=== PATIENT | female | born 1995 | race Caucasian/White ===

== ENCOUNTER 2020-05-21 20:42 | Emergency (ER) | payer BC ==
[~2020-05-21] VITALS: Ht 167.6 cm; Wt 55.9 kg
[2020-05-21 21:33] LABS: BACTERIA,URINE 0 /HPF (0-FEW); BILIRUBIN,URINE NEG (NEG); CLARITY,URINE CLEAR; COLOR,URINE COLORLESS; GLUCOSE,URINE NEG (NEG); NITRITE,URINE NEG (NEG); RBC,URINE 0 /HPF (0-2); UROBILINOGEN,URINE 0.2 mg/dL (0.2 mg/dL); WBC,URINE 0 /HPF (0-4)
[2020-05-21] MEDS ORDERED: IOHEXOL 300 MG/ML 75 ML VIAL. IV ONE (21:45)
[2020-05-21] MEDS ORDERED: CONTRAST GIVEN. MC PRN (21:45)
--- NOTE | 2020-05-21 21:49 | PHYS DOC ---
Past History Past Medical History: No Pertinent History Alcohol Use: Rarely Adult General Chief Complaint Chief Complaint: ABDOMINAL PAIN HPI HPI Patient is a 24-year-old female who presents with right lower quadrant pain. She states that she woke up this morning and noticed that she was having pain in her right lower quadrant, 6 out of 10, sharp in nature with some radiation towards her back. States she never had anything like this before. Denies any recent travel, traumas, fevers, chest pain, shortness of breath, other abdominal pain, dysuria, hematuria, diarrhea. Denies any Covid/flu symptoms. Denies any vaginal bleeding, discharge or pain. Denies any history of STIs. States she otherwise feels well and has been eating and drinking normally today. States she is making urine and stool normally for her with no blood in either. States that currently the pain is only a 2 or 3 and can be exacerbated by moving around. States that eating does not change the pain at all. Review of Systems Review of Systems Review of systems otherwise unremarkable except noted in HPI Current Medications Current Medications Current Medications Medications (Trade) Dose Ordered Sig/Nilda Start Time Stop Time Status Last Admin Dose Admin Iohexol (Omnipaque 300 Mg/ml) 75 ml 1X ONCE 05/21/20 21:30 05/21/20 21:31 UNV Allergies Allergies Allergies Coded Allergies Type Severity Reaction Last Updated Verified No Known Drug Allergies 05/21/20 No Physical Exam Physical Exam Constitutional: Well developed, well nourished, no acute distress, non-toxic elke earance. [] HENT: Normocephalic, atraumatic, bilateral external ears normal, oropharynx moist, no oral exudates, nose normal. [] Eyes: conjunctiva normal, no discharge. [] Neck: Normal range of motion, no tenderness, supple, no stridor. [] Cardiovascular:Heart rate regular rhythm, no murmur [] Lungs & Thorax: Bilateral breath sounds clear to auscultation [] Abdomen: soft, right lower quadrant tenderness, no masses, no pulsatile masses. [] Skin: Warm, dry, no erythema, no rash. [] Back: No tenderness, no CVA tenderness. [] Extremities: No tenderness, no cyanosis, no clubbing, ROM intact, no edema. [] Neurologic: Alert and oriented X 3, normal motor function, normal sensory function, no focal deficits noted. [] Psychologic: Affect normal, judgement normal, mood normal. [] Current Patient Data Vital Signs Vital Signs Date Time Temp Pulse Resp B/P (MAP) Pulse Ox O2 Delivery O2 Flow Rate FiO2 05/21/20 20:50 99.3 91 20 134/90 (105) 98 Room Air Lab Results Laboratory Tests Test 05/21/20 20:55 05/21/20 21:12 Urine Collection Type Unknown Urine Color Colorless Urine Clarity Clear Urine pH 7.0 Urine Specific Morven 1.015 Urine Protein Neg (NEG-TRACE) Urine Glucose (UA) Neg mg/dL (NEG) Urine Ketones (Stick) Neg mg/dL (NEG) Urine Blood Trace (NEG) Urine Nitrite Neg (NEG) Urine Bilirubin Neg (NEG) Urine Urobilinogen Dipstick 0.2 mg/dL (0.2 mg/dL) Urine Leukocyte Esterase Neg (NEG) Urine RBC 0 /HPF (0-2) Urine WBC 0 /HPF (0-4) Urine Squamous Epithelial Cells None /LPF Urine Bacteria 0 /HPF (0-FEW) POC Urine HCG, Qualitative hcg negative (Negative) EKG EKG [] Radiology/Procedures Radiology/Procedures []Exam: CT of abdomen and pelvis with contrast INDICATION: Right lower quadrant pain TECHNIQUE: Sequential axial images through the abdomen and pelvis obtained following the administration of 75 mL of Omni 300 IV contrast. Sagittal and coronal reformatted images were reconstructed from the axial data and reviewed. Comparisons: None FINDINGS: Heart size is normal. No pericardial effusion. Visualized lung bases are clear. No pleural effusion. Liver, spleen, pancreas, gallbladder and adrenals are unremarkable. No perinephric inflammation or hydronephrosis. No renal or ureteral calculi are identified. Bladder is decompressed not well evaluated. Uterus is nonenlarged. Cystic lesions at the right adnexa largest measuring 1 cm. Large bowel demonstrate a large amount stool. Appendix is normal. Small bowel is unremarkable. No free intra-abdominal air or fluid. No obstruction. Abdominal abdominal aorta has a normal course and caliber. Abdominal vasculature is patent. No enlarged intra-abdominal lymph nodes are identified. No suspicious osseous lesions or acute fractures. IMPRESSION: 1. Normal appendix. 2. Small cystic lesions at the right adnexa likely representing follicular change in the right ovary measuring up to 1 cm. This is not definitively characterized on CT. Exposure: One or more of the following in the visualized dose reduction techniques were utilized for this examination: 1. Automated exposure control 2. Adjustment of the MA and/or KV according to patient size 3. Use of iterative of reconstructive technique Electronically signed by: Keith Galindo MD (05/21/2020 10:12 PM) [facility] Heart Score C/O Chest Pain: No Risk Factors: Risk Factors: DM, Current or recent (<one month) smoker, HTN, HLP, family history of CAD, obesity. Risk Scores: Risk Factors: DM, Current or recent (<one month) smoker, HTN, HLP, family history of CAD, obesity. Course & Med Decision Making Course & Med Decision Making Patient is a 24-year-old female who presents with right lower quadrant pain for day Vital signs not concerning. Physical exam noted above. Patient denies need for nausea or pain medicine at this time. Laboratory analysis not concerning. Urinalysis not concerning. Urine negative. CT notable for small cystic lesions at the right adnexa likely representing follicular change in the right ovary about 1 cm. Discussed all findings with family and recommended follow-up with RESERVATIONS CLERK to discuss this and possibly an outpatient ultrasound. Advised on pain control at home. Advised to follow-up with RESERVATIONS CLERK or primary care physician first thing tomorrow. Gave strict return precautions to the ED. Family grateful, verbalized understanding and agreed with plan of discharge. [] Dragon Disclaimer Dragon Disclaimer This electronic medical record was generated, in whole or in part, using a voice recognition dictation system. Departure Departure: Impression: Primary Impression: Ovarian cyst Disposition: 01 DC HOME SELF CARE/HOMELESS Condition: GOOD Referrals: PCP,NO (PCP) Patient Instructions: Ovarian Cyst Additional Instructions: Please read the attached information. Please follow-up with your primary care physician or RESERVATIONS CLERK this week to discuss your recent ED visit and results and need for outpatient ultrasound. Use Tylenol, and ibuprofen at home as needed for pain control. Please come back to the emergency department with any new or concerning symptoms. BENI ORTIZ MD May 21, 2020 21:49
[2020-05-21 21:50] LABS: BASO % 0 % (0-3); EOS # 0.1 x10^3/uL (0.0-0.7); EOS % 2 % (0-3); HEMOGLOBIN 13.6 g/dL (12.0-15.5); LYMPH % 36 % (24-48); MEAN CORPUSCULAR HEMOGLOBIN 29 pg (25-35); MEAN CORPUSCULAR HGB CONC 33 g/dL (31-37); MEAN CORPUSCULAR VOLUME 87 fL (79-100); MONO # 0.5 x10^3/uL (0.0-1.1); MONO % 8 % (0-9); NEUT % 54 % (31-73); PLATELET COUNT 175 x10^3/uL (140-400); RED BLOOD COUNT 4.72 x10^6/uL (3.50-5.40); RED CELL DISTRIBUTION WIDTH 13.5 % (11.5-14.5); WHITE BLOOD COUNT 5.5 x10^3/uL (4.0-11.0)
[2020-05-21 21:57] LABS: CALCIUM 8.7 mg/dL (8.5-10.1); CREATININE 0.8 mg/dL (0.6-1.0); GFR 89.7; POTASSIUM 3.5 mmol/L (3.5-5.1)
[2020-05-21 22:03] LABS: ALBUMIN 3.5 g/dL (3.4-5.0); TOTAL BILIRUBIN 0.3 mg/dL (0.2-1.0); TOTAL PROTEIN 7.1 g/dL (6.4-8.2)
--- NOTE | 2020-05-21 22:15 | RAD ---
Exam: CT of abdomen and pelvis with contrast INDICATION: Right lower quadrant pain TECHNIQUE: Sequential axial images through the abdomen and pelvis obtained following the administrati on of 75 mL of Omni 300 IV contrast. Sagittal and coronal reformatted images were reconstructed from the axial data and reviewed. Comparisons: None FINDINGS: Heart size is normal. No pericardial effusion. Visualized lung bases are clear. No pleural effusion. Liver, spleen, pancreas, gallbladder and adrenals are unremarkable. No perinephric inflammation or hydronephrosis. No renal or ureteral calculi are identified. Bladder is decompressed not well evaluated. Uterus is nonenlarged. Cystic lesions at the right adnexa largest measuring 1 cm. Large bowel demonstrate a large amount stool. Appendix is normal. Small bowel is unremarkable. No raisa e intra-abdominal air or fluid. No obstruction. Abdominal abdominal aorta has a normal course and caliber. Abdominal vasculature is patent. No enlarged intra-abdominal lymph nodes are identified. No suspicious osseous lesions or acute fractures. IMPRESSION: 1. Normal appendix. 2. Small cystic lesions at the right adnexa likely representing follicular change in the right ovary measuring up to 1 cm. This is not definitively characterized on CT. Exposure: One or more of the following in the visualized dose reduction techniques were utilized for this examination: 1. Automated exposure control 2. Adjustment of the MA and/or KV according to patient size 3. Use of iterative of reconstructive technique Electronically signed by: Keith Galindo MD (05/21/2020 10:12 PM) [facility]
[2020-05-21 23:00] VITALS: BP 125/81
== END 2020-05-21 23:11 | disposition home or self-care (01) ==
LOC: ER 20:42
DX: N83.201 Unspecified ovarian cyst, right side (principal)
CPT/HCPCS: 36415; 74177; 80053; 81001; 81025; 83690; 85025; 99285; Q9967

== ENCOUNTER 2021-04-18 13:18 | Emergency (ER) | payer BC, OTHER ==
[~2021-04-18] VITALS: Ht 167.6 cm; Wt 55.9 kg
--- NOTE | 2021-04-18 14:11 | PHYS DOC ---
Past History Past Medical History: No Pertinent History (SYDNIE SLADE) Past Surgical History: No Surgical History (SYDNIE SLADE) Alcohol Use: Rarely (SYDNIE SLADE) General Adult EDM: Chief Complaint: LACERATION/AVULSION HPI: HPI: Patient is a 25 year old female who presents with scalp laceration. Patient was helping her boyfriend move a shelf in the garage. She was crouched down when a shovel fell off the shelf and struck the top of her head. Patient reports associated headache. Patient denies loss of consciousness, neck pain, irritability nausea and vomiting. (SYDNIE SLADE) Review of Systems: Review of Systems: Constitutional: Denies fever, chills or generalized weakness Eyes: Denies change in visual acuity, visual field deficits or discharge HENT: Denies ear pain, nasal congestion or sore throat Respiratory: Denies cough or shortness of breath Cardiovascular: Denies chest pain, palpitations or edema GI: Denies abdominal pain, nausea, vomiting, bloody stools or diarrhea : Denies dysuria or hematuria Musculoskeletal: Denies back pain or joint pain Integument: Denies rash or other skin lesion Neurologic: Denies focal weakness or sensory changes. Reports headache. (SYDNIE SLADE) Current Medications: Current Meds: Current Medications Medications (Trade) Dose Ordered Sig/Nilda Start Time Stop Time Status Last Admin Dose Admin Ibuprofen (Motrin) 600 mg 1X ONCE 04/18/21 14:00 04/18/21 14:01 Lidocaine/ Epinephrine (Let ([id number]) Gel) 3 ml 1X ONCE 04/18/21 14:00 04/18/21 14:01 (SYDNIE SLADE) Allergies: Allergies: Allergies Coded Allergies Type Severity Reaction Last Updated Verified No Known Drug Allergies 05/21/20 No (SYDNIE SLADE) Physical Exam: PE: Constitutional: Well developed, well nourished, no acute distress, non-toxic appearance. HENT: Normocephalic, 3cm laceration noted to R side superior scalp, bilateral external ears normal, oropharynx moist, no oral exudates, nose normal. Eyes: PERRL (blind in R eye, but appropriate consensual response elicited), EOMI, conjunctiva normal, no discharge. Neck: Normal range of motion, no tenderness, no stridor. Skin: Warm, dry, no erythema, no rash. See above for scalp laceration. Extremities: No tenderness, no cyanosis, no clubbing, ROM intact, no edema. Neurologic: Alert and oriented x4, motor and sensory function grossly intact, no focal deficits noted. (SYDNIE SLADE) Current Patient Data: Vital Signs: Vital Signs Date Time Temp Pulse Resp B/P (MAP) Pulse Ox O2 Delivery O2 Flow Rate FiO2 04/18/21 13:30 97.7 80 18 128/80 (96) 99 Room Air (SYDNIE SLADE) Heart Score: C/O Chest Pain: No (SYDNIE SLADE) Course & Med Decision Making: Course & Med Decision Making Pertinent Labs and Imaging studies reviewed. (See chart for details) Healthy 25 year old female presents with scalp laceration as a result of a shovel falling off of a shelf while she was crouched. No red flag symptoms. CHIP prediction rule: low risk head injury, CT imaging not necessary. LET gel and PO ibuprofen provided. Yoandy placed with good approximation. Patient tolerated procedure well. Patient provided with wound care instructions, return precautions and instruction for follow up/removal. She understands and is agreeable at this time. (SYDNIE SLADE) Danielleon Disclaimer: Jalen Disclaimer: This electronic medical record was generated, in whole or in part, using a voice recognition dictation system. (SYDNIE SLADE) Laceration Repair Lac Repair Indication: scalp laceration Procedure: The patient was placed in the appropriate position and anesthesia around the laceration was LET gel. The area was then cleansed with chlorhexidine sponge and irrigated with sterile saline. The laceration was closed with 4 yoandy. Total repaired wound length: 4 cm Other Items: The patient tolerated the procedure well. Complications: No complications. (SYDNIE SLADE) Attending Co-Sign The patient was seen and interviewed as well as examined at the bedside. The chart was reviewed. The case was discussed. Agree with the plan of care. (KUNAL MOON DO) Departure Departure: Impression: Primary Impression: Laceration without foreign body of scalp, initial encounter Disposition: HOME / SELF CARE / HOMELESS Condition: IMPROVED Referrals: PCP,NO (PCP) Patient Instructions: Head Injury, Adult, [id number], Staple Wound Closure, [id number] Additional Instructions: EMERGENCY DEPARTMENT GENERAL DISCHARGE INSTRUCTIONS Thank you for coming to [facility] (ED) today and trusting us with you care. We trust that you had a positive experience in our Emergency Department. If you wish to speak to the department management, you may call the director at [phone]. YOUR FOLLOW UP INSTRUCTIONS ARE FOLLOWS: 1. Follow up with your primary care doctor. If you do not have a primary doctor, please ask for a resource list of physicians or clinics that may be able to assist you with follow up care. 2. The emergency provider has interpreted your imaging studies, if any were ordered. The radiology magnetic resonance imaging coordinator also reviewed them. If there is a change in the findings, you will be notified in 48 hours when at all possible. 3. If a lab test or culture has been done, your results will be reviewed and you will be notified if you need a change in treatment. 4. Follow instructions verbalized to you and refer to the printouts if needed. ADDITIONAL INSTRUCTIONS AND INFORMATION: 1. Your care today has been supervised by a physician who is specially trained in emergency care. Many problems require more than one evaluation for a comp lete diagnosis and treatment. We recommend that you schedule your follow up appointment as recommended to ensure complete treatment of you illness or injury. If you are unable to obtain follow up care and continue to have a problem, or if your condition worsens, we recommend that you return to the ED. 2. We are not able to safely determine your condition over the phone nor are we able to give sound medical advice over the phone. For these safety reasons, if you call for medical advice we will ask you to come to the ED for further evaluation. 3. If you have any questions regarding these discharge instructions please call the ED at [phone]. SAFETY INFORMATION: In the interest of safety, wellness, and injury prevention; we encourage you to wear your seat belt, if you smoke; quite smoking, and we encourage family to use a protective helmet for bicycling and other sporting events that present an increased risk for head injury. IF YOUR SYMPTOMS WORSEN OR NEW SYMPTOMS DEVELOP, OR YOU HAVE CONCERNS ABOUT YOUR CONDITION; OR IF YOUR CONDITION WORSENS WHILE YOU ARE WAITING FOR YOUR FOLLOW UP APPOINTMENT; EITHER CONTACT YOUR PRIMARY CARE DOCTOR, THE PHYSICIAN WHOSE NAME AND NUMBER YOU WERE GIVEN, OR RETURN TO THE ED IMMEDIATELY. SYDNIE SLADE Apr 18, 2021 14:11 KUNAL MOON DO Apr 19, 2021 10:14
[2021-04-18] MEDS: LIDOCAINE/EPI/TETRACAINE TOPICAL GEL 3 ML. TP ONE (14:18)
[2021-04-18] MEDS: IBUPROFEN 600 MG TABLET. PO ONE (14:19)
== END 2021-04-18 15:09 | disposition home or self-care (01) ==
LOC: ER 13:18
DX: S01.01XA Laceration without foreign body of scalp, initial encounter (principal); W20.8XXA Other cause of strike by thrown, projected or falling object, initial encounter; Y93.89 Activity, other specified; Y92.89 Other specified places as the place of occurrence of the external cause; Y99.8 Other external cause status
CPT/HCPCS: 12002; 99282